=== PATIENT | female | born 1955 | race Caucasian/White ===

== ENCOUNTER → 2017-03-08 | Outpatient (CLI) | payer OTHER ==
--- NOTE | 2017-03-08 13:36 | MM ---
Reason for exam: screening (asymptomatic). Last mammogram was performed 1 year ago. History: Patient has history of other cancer at age 59 and had first child at age 34. Took hormonal contraceptives for 8 years. Physical Findings: A clinical breast exam by your physician is recommended on an annual basis and results should be correlated with mammographic findings. MG Screening Mammo w CAD Bilateral CC and MLO view(s) were taken. Prior study comparison: February 27, 2016, bilateral MG screening mammo w CAD. February 23, 2015, bilateral MG screening mammo w CAD. There are scattered fibroglandular densities. Finding: There are typically benign secretory calcifications in both breasts. No suspicious abnormality. No significant changes in finding since February 27, 2016 and February 23, 2015. ASSESSMENT: Benign, BI-RAD 2 RECOMMENDATION: Routine screening mammogram of both breasts in 1 year.
== END | disposition home or self-care (01) ==
LOC: RADMAMWWP 07:13
PROVIDERS: ATTEND Family Medicine
DX: Z12.31 Encounter for screening mammogram for malignant neoplasm of breast (principal)

== ENCOUNTER → 2017-03-15 | Outpatient (CLI) | payer OTHER ==
--- NOTE | 2017-03-15 16:25 | US ---
EXAMINATION TYPE: US pelvic complete DATE OF EXAM: 03/15/2017 COMPARISON: NONE CLINICAL HISTORY: N95.0 Post menopausal bleeding. 2 days of postmenopausal bleeding in the past few w eeks, 2, para 2, history of ablation TECHNIQUE: Transvaginal (TV) and Transabdominal (TA) Date of LMP: 2 years ago EXAM MEASUREMENTS: Uterus: 6.9 x 4.0 x 5.7 cm Endometrial Stripe: 0.5 cm Right Ovary: 2.6 x 1.4 x 1.8 cm Left Ovary: 3.5 x 1.6 x 1.9 cm 1. Uterus: anteverted, heterogeneous with 0.5cm echogenic focus posterior myometrium, multiple nabot hian cysts 2. Endometrium: measures in upper limits of normal 3. Right Ovary: wnl 4. Left Ovary: 0.9cm cystic area 5. Bilateral Adnexa: wnl 6. Posterior cul-de-sac: wnl Slightly retroflexed uterus is present. Nabothian cysts are seen in the cervix. Endometrium does not appear suspiciously thickened. No free fluid is seen in pelvis. Both ovaries are identified without s uspicious adnexal lesion. IMPRESSION: No significant finding is seen to account for patient's symptoms of postmenopausal bleedi ng.
== END | disposition home or self-care (01) ==
LOC: RADUSWWP 15:38
PROVIDERS: ATTEND Obstetrics & Gynecology
DX: N95.0 Postmenopausal bleeding (principal)
CPT/HCPCS: 76830; 76856

== ENCOUNTER 2017-12-11 10:07 | Day surgery (SDC) | payer OTHER ==
[2017-12-06 09:06] VITALS: BMI 39.3
[~2017-12-11 10:07] MED LIST: HEPARIN SODIUM,PORCINE 5,000 UNIT/ML 1 ML VIAL SQ ONE; LACTATED RINGERS 1,000 ML IV SCH; MORPHINE SULFATE 4 MG/ML SYRINGE IV PRN; Pre Op ABX Message 1 EACH MISC MISCELLANE ONE
[2017-12-11 10:36] LABS: Glucose,Whole Blood 168 mg/dL (75-99)
[2017-12-11] MEDS ORDERED: DEXAMETHASONE SOD PHOSPHATE 10 MG/ML 1 ML VIAL IV ONE (10:51)
[2017-12-11] MEDS ORDERED: ONDANSETRON 4 MG/2 ML VIAL IVP ONE (10:51)
--- NOTE | 2017-12-11 11:13 | P.GSHP ---
History of Present Illness H&P Date: 12/11/17 Chief Complaint: Neck wound 62-year-old female well known to our service. Patient underwent previous thyroidectomy. Patient has had recurrent complaints of wound formation along the incision site over the last several months. The patient has identified a total of 6 silk sutures that have come from the wound thus far. Wound is still draining. Here today for wound exploration. Past Medical History Past Medical History: Cancer, Diabetes Mellitus, Hypertension, Skin Disorder, Thyroid Disorder Additional Past Medical History / Comment(s): thyroid cancer 2016-surgery & radioactive tx. after, currently has old sutures coming out on & off of old incision-occasional drainage History of Any Multi-Drug Resistant Organisms: None Reported Past Surgical History: Adenoidectomy, Uterine Ablation Additional Past Surgical History / Comment(s): thyroidectomy Past Anesthesia/Blood Transfusion Reactions: Motion Sickness, Postoperative Nausea & Vomiting (PONV) Smoking Status: Never smoker - Past Family History Mother Family Medical History: Coronary Artery Disease (CAD), Diabetes Mellitus, Hypertension Father Family Medical History: Diabetes Mellitus, Hypertension Additional Family Medical History / Comment(s): BHARATH. Medications and Allergies Home Medications Medication Instructions Recorded Confirmed Type Atenolol 100 mg PO BID 02/11/15 12/06/17 History Multivitamins, Thera [Multivitamin] 1 tab PO DAILY 02/11/15 12/11/17 History Levothyroxine Sodium [Levoxyl] 150 mcg PO DAILY 12/06/17 12/06/17 History metFORMIN HCL [Glucophage] 1,000 mg PO BID 12/06/17 12/11/17 History Allergies Allergy/AdvReac Type Severity Reaction Status Date / Time sulfamethoxazole Allergy Rash/Hives Verified 12/11/17 10:40 [From Bactrim] trimethoprim [From Bactrim] Allergy Rash/Hives Verified 12/11/17 10:40 adhesive AdvReac red skin Verified 12/06/17 09:03 Surgical - Exam Vital Signs Temp Pulse Resp BP Pulse Ox 97.7 F 79 17 163/78 98 12/11/17 10:33 12/11/17 10:33 12/11/17 10:33 12/11/17 10:33 12/11/17 10:33 Physical exam: General: Well-developed, well-nourished HEENT: Normocephalic, sclerae nonicteric, small nodularity with open wound formation left of midline along the cervical incision Abdomen: Nontender, nondistended Extremities: No edema Neuro: Alert and oriented Results - Labs Abnormal Lab Results - Last 24 Hours (Table) 12/11/17 Range/Units 10:35 POC Glucose (mg/dL) 168 H (75-99) mg/dL Assessment and Plan (1) Open neck wound Narrative/Plan: Will proceed with wound exploration with possible stitch abscess removal. Risks of bleeding, infection, recurrence, open wound formation, nerve injury, scarring were reviewed. She understands and wishes to proceed. Current Visit: Yes Status: Acute Code(s): S11.90XA - UNSP OPEN WOUND OF UNSPECIFIED PART OF NECK, INIT ENCNTR SNOMED Code(s): 973468412
[2017-12-11] MEDS ORDERED: SUCCINYLCHOLINE CHLORIDE 100 MG/5 ML SYR IV ONE (11:43)
[2017-12-11] MEDS ORDERED: LIDOCAINE 1% INJ 10MG/ML (20 ML MDV) ONE (11:43)
[2017-12-11] MEDS ORDERED: GLYCOPYRROLATE 0.2 MG/ML 2 ML VIAL ONE (11:43)
[2017-12-11] MEDS ORDERED: PROPOFOL 10 MG/ML 20 ML VIAL IV ONE (11:43)
[2017-12-11] MEDS ORDERED: fentaNYL (PF) 50 MCG/ML 2 ML AMP ONE (11:43)
[2017-12-11] MEDS ORDERED: ROCURONIUM BROMIDE 10 MG/ML 10 ML VIAL IV ONE (11:43)
[2017-12-11] MEDS ORDERED: MIDAZOLAM 2 MG/2 ML VIAL ONE (11:43)
[2017-12-11] MEDS ORDERED: NEOSTIGMINE 1 MG/ML 10 ML VIAL ONE (11:43)
[2017-12-11] MEDS ORDERED: ePHEDrine SULFATE/0.9% NACL/PF 50 MG/5 ML SYRINGE IV ONE (11:43)
[2017-12-11] MEDS ORDERED: BUPIVACAIN-EPI 0.25%-1:200,000 30 ML VIAL SQ ONE ×2 (12:32)
[2017-12-11] MEDS ORDERED: LACTATED RINGERS 1,000 ML IV ONE ×2 (12:35→13:32)
[2017-12-11] MEDS ORDERED: NALOXONE 0.4 MG/ML 1 ML VIAL IV PRN ×2 (12:54→12:55)
--- NOTE | 2017-12-11 12:59 | P.OP ---
Date of Procedure: 12/11/17 Procedure(s) Performed: PREOPERATIVE DIAGNOSIS: Neck wound POSTOPERATIVE DIAGNOSIS: Same PROCEDURE: Exploration neck wound with debridement SURGEON: Kera EBL: Minimal ANESTHESIA: General COMPLICATIONS: None OPERATIVE PROCEDURE: Patient placed on the operating table in the supine position. The patient's neck was prepped and draped in usual sterile fashion. An incision was made through the previous wound site. Dissection through the subcutaneous tissues took place sharply and with blunt dissection. There was a track of granulation tissue that extended towards the midline and deep. This seemed to stop at the level of the trachea itself. The smallest curet was utilized in debriding the granulation tissue. No suture material was seen. Cultures were taken of the deeper tissues. The granulation tissue itself was sent to pathology. Using the probe I was able to take our dissection plane to the left side of the trachea without significant difficulty. I could not visualize any granulation tissue in that area. No foreign body or suture material was seen despite using a curet gently in that area. There did not appear to be any extension to the right side. The wound was irrigated with saline. Again no additional foreign bodies were seen. The wound was then packed with iodophor gauze. A sterile dressing was applied. DISPOSITION: Stable to recovery room
[2017-12-11 13:10] VITALS: TEMP 98.3
[2017-12-11 13:21] LABS: Glucose,Whole Blood 178 mg/dL (75-99)
[2017-12-11 13:44] VITALS: RESP 16
[2017-12-11 14:03] VITALS: BP 137/58; PULSE 66
--- NOTE | 2017-12-16 11:58 | CDI ---
Outpatient Documentation Clarification Form Date: 12/16/17 CDS/Grinder Set Up Operator Surface Name: Rizwana Mujica Phone: If any questions, call Fernanda Escobar Records Section Supervisor at [phone] Patient Name: Flori Parr Admit Date: 12/11/17 Discharge Date: 12/11/17 ATTENTION: The [facility] Coding Staff appreciate your assistance in clarifying documentation. Please respond to the clarification below the line at the bottom and electronically sign. The [facility] Coding staff will review the response and follow-up if needed. Please note: Queries are made part of the Legal Health Record. If you have any questions, please contact the Records Section Supervisor. Dear Dr. Cote, 1. What was the depth/level of the tissue debridement? A. Skin B. Subcutaneous tissue C. Soft tissue, muscle or fascia D. Bone 2. How many square centimeters was debrided? Thank you for your kind consideration. Depth of debridement was subcutaneous tissue. Square centimeters = 2cm. MTDD
== END 2017-12-11 15:15 | disposition home or self-care (01) ==
LOC: OR 10:07
PROVIDERS: ATTEND Surgery
DX: T81.89XA Other complications of procedures, not elsewhere classified, initial encounter (principal); M79.5 Residual foreign body in soft tissue; Z18.89 Other specified retained foreign body fragments; E89.0 Postprocedural hypothyroidism; Z85.850 Personal history of malignant neoplasm of thyroid; Z92.3 Personal history of irradiation; E11.9 Type 2 diabetes mellitus without complications; I10 Essential (primary) hypertension; Z79.84 Long term (current) use of oral hypoglycemic drugs; Z79.890 Hormone replacement therapy; Z79.899 Other long term (current) drug therapy; Z88.1 Allergy status to other antibiotic agents; Z88.2 Allergy status to sulfonamides; Z91.048 Other nonmedicinal substance allergy status
CPT/HCPCS: 11042; 88304; 87070; 87205; 87075; J2250; J1644; J1100; J2710; J2405; J2001; J3010; J0330; J2704

== ENCOUNTER → 2018-04-01 | Outpatient (CLI) | payer OTHER ==
--- NOTE | 2018-04-07 14:32 | MM ---
Reason for exam: screening (asymptomatic). Last mammogram was performed 1 year and 1 month ago. History: Patient has history of other cancer at age 59 and had first child at age 34. Took hormonal contraceptives for 8 years. Physical Findings: A clinical breast exam by your physician is recommended on an annual basis and results should be correlated with mammographic findings. MG 3D Screening Mammo W/Cad Bilateral CC and MLO view(s) were taken. Prior study comparison: March 08, 2017, bilateral MG screening mammo w CAD. February 27, 2016, bilateral MG screening mammo w CAD. There are scattered fibroglandular densities. Benign secretory calcifications greater in the right breast. No significant changes when compared with prior studies. ASSESSMENT: Benign, BI-RAD 2 RECOMMENDATION: Routine screening mammogram of both breasts in 1 year.
== END | disposition home or self-care (01) ==
LOC: RADMAMWWP 06:50
PROVIDERS: ATTEND Family Medicine
DX: Z12.31 Encounter for screening mammogram for malignant neoplasm of breast (principal)
CPT/HCPCS: 77063; 77067

== ENCOUNTER 2019-01-23 07:13 | Day surgery (SDC) | payer OTHER ==
[2019-01-19 16:02] VITALS: BMI 40.2
[~2019-01-23 07:13] MED LIST changes: -HEPARIN SODIUM,PORCINE 5,000 UNIT/ML 1 ML VIAL SQ ONE; +LIDOCAINE 1% 20 ML VIAL (10MG/ML) FOR IV START INTRADERMA PRN; -MORPHINE SULFATE 4 MG/ML SYRINGE IV PRN; -Pre Op ABX Message 1 EACH MISC MISCELLANE ONE
[2019-01-23 07:36] VITALS: TEMP 97.3
[2019-01-23 08:11] LABS: Glucose,Whole Blood 190 mg/dL (75-99)
[2019-01-23] MEDS ORDERED: LIDOCAINE 1% INJ 10MG/ML (20 ML MDV) ONE (08:12)
[2019-01-23] MEDS ORDERED: PROPOFOL 10 MG/ML 20 ML VIAL IV ONE (08:12)
--- NOTE | 2019-01-23 08:32 | P.PCN ---
Date of Procedure: 01/23/19 Procedure(s) Performed: BRIEF HISTORY: Patient is a 63-year-old pleasant white female scheduled for an elective colonoscopy as a part of screening for colorectal neoplasia. PROCEDURE PERFORMED: Colonoscopy. PREOPERATIVE DIAGNOSIS: Screening for colon cancer. IV sedation per Anesthesia. PROCEDURE: After informed consent was obtained, the patient, was brought into the endoscopy unit. IV sedation was administered by Anesthesia under continuous monitoring. Digital rectal examination was normal. Initially the Olympus CF-160 flexible video colonoscope was then inserted in the rectum, gradually advanced into the cecum without any difficulty. Careful examination was performed as the scope was gradually being withdrawn. Ileocecal valve and the appendiceal orifice were visualized and appeared normal. Prep was excellent. Mucosa of the cecum, ascending colon, transverse colon, descending colon, sigmoid colon, and rectum appeared normal. Scattered sigmoidal diverticulosis seen. Retroflexion was performed in the rectum and no lesions were seen. The patient tolerated the procedure well. IMPRESSION: Normal-appearing colon from rectum to cecum with no evidence of colorectal neoplasia. Scattered sigmoidal diverticulosis. RECOMMENDATIONS: Findings of this examination were discussed with the patient as well as a family. She was advised to have a repeat screening colonoscopy in 10 years from now..
[2019-01-23 08:51] VITALS: BP 143/80; PULSE 57; RESP 16
== END 2019-01-23 09:28 | disposition home or self-care (01) ==
LOC: ORWHC2ENDO 07:13
PROVIDERS: ATTEND Internal Medicine Gastroenterology
DX: Z12.11 Encounter for screening for malignant neoplasm of colon (principal); K57.30 Diverticulosis of large intestine without perforation or abscess without bleeding; I10 Essential (primary) hypertension; E11.9 Type 2 diabetes mellitus without complications; E07.9 Disorder of thyroid, unspecified; Z88.2 Allergy status to sulfonamides; Z91.048 Other nonmedicinal substance allergy status; Z79.82 Long term (current) use of aspirin; Z79.84 Long term (current) use of oral hypoglycemic drugs; Z79.890 Hormone replacement therapy; Z79.899 Other long term (current) drug therapy
CPT/HCPCS: J2001; J2704; G0121

== ENCOUNTER → 2019-04-27 | Outpatient (CLI) | payer BC, OTHER ==
--- NOTE | 2019-04-28 09:54 | MM ---
Reason for exam: screening (asymptomatic). Last mammogram was performed 1 year and 1 month ago. History: Patient has history of other cancer at age 59 and had first child at age 34. Took hormonal contraceptives for 8 years. Physical Findings: A clinical breast exam by your physician is recommended on an annual basis and results should be correlated with mammographic findings. MG 3D Screening Mammo W/Cad Bilateral CC and MLO view(s) were taken. XCCL view(s) were taken of the right breast. Prior study comparison: April 01, 2018, bilateral MG 3d screening mammo w/cad. March 08, 2017, bilateral MG screening mammo w CAD. There are scattered fibroglandular densities. No significant changes when compared with prior studies. ASSESSMENT: Benign, BI-RAD 2 RECOMMENDATION: Routine screening mammogram of both breasts in 1 year.
== END | disposition home or self-care (01) ==
LOC: RADMAMWWP 09:01
PROVIDERS: ATTEND Family Medicine
DX: Z12.31 Encounter for screening mammogram for malignant neoplasm of breast (principal)
CPT/HCPCS: 77063; 77067

== ENCOUNTER → 2020-07-13 | Outpatient (CLI) | payer BC, OTHER ==
--- NOTE | 2020-07-14 13:11 | MM ---
Reason for exam: screening (asymptomatic). Last mammogram was performed 1 year and 3 months ago. History: Patient has history of other cancer at age 59 and had first child at age 34. Took hormonal contraceptives for 8 years. Physical Findings: A clinical breast exam by your physician is recommended on an annual basis and results should be correlated with mammographic findings. MG 3D Screening Mammo W/Cad Bilateral CC and MLO view(s) were taken. Prior study comparison: April 27, 2019, bilateral MG 3d screening mammo w/cad. April 01, 2018, bilateral MG 3d screening mammo w/cad. There are benign appearing round linear calcifications bilaterally, greater in the right breast. There is no discrete abnormality. Stable prominent benign bilateral axillary lymph nodes. ASSESSMENT: Benign, BI-RAD 2 RECOMMENDATION: Routine screening mammogram of both breasts in 1 year.
== END | disposition home or self-care (01) ==
LOC: RADMAMWWP 07:55
PROVIDERS: ATTEND Family Medicine
DX: Z12.31 Encounter for screening mammogram for malignant neoplasm of breast (principal)
CPT/HCPCS: 77063; 77067

== ENCOUNTER → 2021-09-12 | Outpatient (CLI) | payer BC ==
--- NOTE | 2021-09-12 17:42 | BD ---
EXAMINATION TYPE: Axial Bone Density DATE OF EXAM: 09/12/2021 CLINICAL HISTORY: 65 years year old Female. ICD-10 CODE: Z78.0 Post menopausal w/o HRT Height: 5 FT 1 1/4 IN Weight: 220 FRAX RISK QUESTIONS: Alcohol (3 or more units per day): NO Family History (Parent hip fracture): NO Glucocorticoids (More than 3mos): NO (Ex: prednisone, prednisolone, methylprednisolone, dexamethasone, and hydrocortisone). History of Fracture in Adulthood: NO Secondary Osteoporosis: 1. Type 1 Diabetes: TYPE 2 2. Hyperthyroidism: REMOVED FOR THYROID CANCER 2015 3. Menopause before 45: NO 4. Malnutrition: NO 5. Chronic liver disease: NO Rheumatoid Arthritis: NO Current Tobacco Use: NO RISK FACTORS HISTORY OF: Surgery to Spine/Hip(right/left)/Wrist (right/left): NO Family History of Osteoporosis: NO Active: NO Diet low in dairy products/other sources of calcium: NO Postmenopausal woman: YES Take estrogen and/or progesterone medications: NO Lost more than 2 inches in height since high school: NO Frequent falls: NO Poor Health: GOOD Hyperparathyroidism: NO Adrenal Insufficiency: NO MEDICATIONS: Thyroid Medications: YES Which medication: LEVOXYL How Lon YEARS Additional Medications: LEVOXYL, METFORMIN, ATENOLOL, MULTI ,CRESTOR Additional History: EXAM MEASUREMENTS: Bone mineral densitometry was performed using the [employer] System. Bone mineral density as measured about the Lumbar spine is: ----- L1-L4(G/cm2): 1.333 T Score Values are as follows: ----- L1: 1.8 ----- L2: 0.6 ----- L3: 1.8 ----- L4: 0.8 ----- L1-L4: 1.3 Bone mineral density has: INCREASED 2.4 % since study of: 2016 Bone mineral density about the R hip (g/cm2): 0.980 Bone mineral density about the L hip (g/cm2): 0.912 T Score values are as follows: -----R Neck: -0.4 -----L Neck: -0.9 -----R Total: 0.3 -----L Total: 0.4 Bone mineral density has: DECREASED -6.4 % since study of: 2016 FRAX%s: The graph provided illustrates a 6.8 % chance for a major osteoporotic fx and a 0.4 % chance for the hips probability for fx in 10 years time. IMPRESSION: Normal (Values between +1 and -1 indicate normal bone mass). Consider repeating this study in 5 year s or sooner if there is some new clinical indication. NOTE: T-SCORE=SD OF THE YOUNG ADULT MEAN.
--- NOTE | 2021-09-13 09:08 | MM ---
Reason for Exam: Screening (asymptomatic). Last mammogram was performed 1 year(s) and 2 month(s) ago. Patient History: Menarche at age 13. First Full-Term at age 34. Late child-bearing (after 30). Postmenopausal. Other cancer, age 59. Patient used Hormonal Contraceptives for 8 years. Risk Values: Wanda 5 year model risk: 2.2%. NCI Lifetime model risk: 8.9%. Prior Study Comparison: 04/01/2018 Bilateral Screening Mammogram, [facility]. 04/27/2019 Bilateral Screening Mammogram, [facility]. 07/13/2020 Bilateral Screening Mammogram, [facility]. Tissue Density: There are scattered fibroglandular densities. Findings: Analyzed By CAD. Benign-appearing round and linear calcifications bilaterally are redemonstrated. New group of indistinct calcifications in the posterior right breast inner lower aspect 1.9cm segment warrants further workup, these may be dermal-based. Similar group of calcifications marked posterior inferior left breast are present on current study and new from prior. Overall Assessment: Incomplete: need additional imaging evaluation, BI-RAD 0 Management: Special View Mammogram of both breasts. Diagnostic spot magnified views of both breasts and true lateral view both breasts if calcifications are not dermal-based. Electronically signed and approved by: Geovanni Saunders M.D.
== END | disposition home or self-care (01) ==
LOC: RADMAMWWP 08:39
PROVIDERS: ATTEND Family Medicine
DX: Z12.31 Encounter for screening mammogram for malignant neoplasm of breast (principal); Z78.0 Asymptomatic menopausal state
CPT/HCPCS: 77063; 77067; 77080

== ENCOUNTER → 2021-09-19 | Outpatient (CLI) | payer BC ==
--- NOTE | 2021-09-20 09:51 | MM ---
Reason for Exam: Additional evaluation requested from abnormal screening. Last screening mammogram was performed less than 1 month ago. Patient History: Menarche at age 13. First Full-Term at age 34. Late child-bearing (after 30). Postmenopausal. Other cancer, age 59. Patient used Hormonal Contraceptives for 8 years. Risk Values: Wanda 5 year model risk: 2.2%. NCI Lifetime model risk: 8.9%. Prior Study Comparison: 07/13/2020 Bilateral Screening Mammogram, [facility]. 09/12/2021 Bilateral MG 3D screening mammo w/cad, [facility]. Tissue Density: There are scattered fibroglandular densities. Findings: Analyzed By CAD. Patient returned for additional views bilaterally. In retrospect it appears that the calcifications seen previously reside within the skin. No suspicious calcifications are seen. This is a no charge examination. Overall Assessment: Benign, BI-RAD 2 Management: Screening Mammogram of both breasts in 1 year. Electronically signed and approved by: Arvin Patel M.D. Radiologis
== END | disposition home or self-care (01) ==
LOC: RADMAMWWP 14:54
PROVIDERS: ATTEND Family Medicine
DX: R92.8 Other abnormal and inconclusive findings on diagnostic imaging of breast (principal); Z78.0 Asymptomatic menopausal state
CPT/HCPCS: 77066

== ENCOUNTER → 2023-11-26 | Outpatient (CLI) | payer MEDICARE ==
--- NOTE | 2023-11-28 09:23 | MM ---
Reason for Exam: Screening (asymptomatic). Last screening mammogram was performed 12 month(s) ago. Patient History: Menarche at age 13. First Full-Term at age 34. Late child-bearing (after 30). Postmenopausal. Other cancer, age 59. Patient used Hormonal Contraceptives for 8 years. Sister had breast cancer, age 67. Risk Values: Wanda 5 year model risk: 3.4%. NCI Lifetime model risk: 11.8%. Prior Study Comparison: 09/12/2021 Bilateral MG 3D screening mammo w/cad, [facility]. 09/19/2021 Bilateral MG 3D follow up no charge [facility], [facility]. 11/16/2022 Bilateral MG 3D screening mammo w/cad, [facility]. Tissue Density: There are scattered areas of fibroglandular density. Findings: Analyzed By CAD. Right breast: There is no suspicious group of microcalcifications or new suspicious mass. Benign-appearing calcifications right breast. Left breast: There is no suspicious group of microcalcifications or new suspicious mass. Overall Assessment: Benign, BI-RAD 2 Management: Screening Mammogram of both breasts in [address] [facility] will attempt to contact patient to return for supplemental views and ultrasound if indicated. Patient should continue monthly self-breast exams. A clinical breast exam by your physician is recommended on an annual basis. This exam should not preclude additional follow-up of suspicious palpable abnormalities. Note on Wanda scores and lifetime risk: 1. A Wanda score greater than 3% is considered moderate risk. If this is the case, consider specialist referral to assess eligibility for a risk reducing agent. 2. If overall lifetime risk for the development of breast cancer is 20% or higher, the patient may qualify for future screening with alternating mammogram and breast MRI. [facility], , 11/28/2023 9:20 AM. Electronically signed and approved by: Don Prieto DO
== END | disposition home or self-care (01) ==
LOC: RADMAMWWP 09:01
PROVIDERS: ATTEND Family Medicine
CPT/HCPCS: 77063; 77067